=== PATIENT | female | born 1945 | race Caucasian/White ===

== ENCOUNTER 2021-10-26 12:37 | Outpatient (CLI) | payer MEDICARE, BC ==
[2021-10-27 13:54] LABS: SARS-CoV-2 PCR by NAA Not Detected (NotDetected)
== END 2021-10-26 12:38 | disposition home or self-care (01) ==
LOC: CSHLAB 12:37
PROVIDERS: ATTEND Internal Medicine Gastroenterology
DX: Z20.822 Contact with and (suspected) exposure to COVID-19 (principal)
CPT/HCPCS: U0003; U0005

== ENCOUNTER 2021-10-31 08:58 | Day surgery (SDC) | payer MEDICARE, BC ==
[2021-10-29 13:53] VITALS: BMI 29.4
[2021-10-31] MEDS ORDERED: Lidocaine 1% MPF 2 ML VIAL ONE (09:59)
[2021-10-31 10:15] LABS: INR-International Normal Ratio 1.2; Prothrombin Time 13.2 sec (9.5-12.1)
[2021-10-31] MEDS ORDERED: Fentanyl 100 MCG/2 ML VIAL ONE (10:22)
[2021-10-31] MEDS ORDERED: PROPOFOL 20 ML ONE (10:22)
[2021-10-31] MEDS ORDERED: Ondansetron PF 4 MG/2 ML Vial ONE (10:53)
[2021-10-31] MEDS ORDERED: Dexamethasone 4 mg/ml Vial ONE (10:53)
== END 2021-10-31 11:50 | disposition home or self-care (01) ==
LOC: CSHSDC 08:58
PROVIDERS: ATTEND Internal Medicine Gastroenterology
PROC: 0DJ08ZZ Inspection of Upper Intestinal Tract, Via Natural or Artificial Opening Endoscopic (ICD-10-PCS; principal; 2021-10-31)
DX: K76.6 Portal hypertension (principal); K31.89 Other diseases of stomach and duodenum; K31.7 Polyp of stomach and duodenum; I10 Essential (primary) hypertension; E78.5 Hyperlipidemia, unspecified; K74.60 Unspecified cirrhosis of liver; K58.9 Irritable bowel syndrome, unspecified; Z85.3 Personal history of malignant neoplasm of breast; Z86.010 Personal history of colon polyps; Z87.19 Personal history of other diseases of the digestive system; Z79.02 Long term (current) use of antithrombotics/antiplatelets; Z79.82 Long term (current) use of aspirin; Z79.899 Other long term (current) drug therapy; Z88.5 Allergy status to narcotic agent; Z88.2 Allergy status to sulfonamides
CPT/HCPCS: 36415; 85610; J1100; J2405; J2704; J3010